=== PATIENT | male | born 1955 | race Caucasian/White ===

== ENCOUNTER 2020-03-03 12:16 | Outpatient (REF) | payer MEDICAID, SELFPAY ==
[2020-03-03 20:21] LABS: Hemoglobin A1C 7.3 % (3.8-5.6)
[2020-03-03 20:24] LABS: Anion Gap 13.8 mmol/L (3-11); BUN 17 mg/dL (7-18); CO2 21.2 mmol/L (21.0-32.0); CREATININE 0.86 mg/dL (0.70-1.30); Calcium 8.9 mg/dL (8.5-10.1); Calculated LDL 104 mg/dL (<100); Chloride 103 mmol/L (98-107); Cholesterol 161 mg/dL (<200); Glucose 146 mg/dL (74-106); HDL Cholesterol 41 mg/dL (40-60); Potassium 4.7 mmol/L (3.5-5.1); Sodium 138 mmol/L (136-145); Triglyceride 83 mg/dL (<150)
[2020-03-05 08:51] LABS: PSA, Screening 1.3 ng/mL (0.0-4.5)
== END 2020-03-03 12:36 ==
LOC: NCHCN 12:16
PROVIDERS: PCP Family Medicine; Visit Provider Nurse Practitioner Family
DX: I10 Essential (primary) hypertension (principal); E78.5 Hyperlipidemia, unspecified; R73.03 Prediabetes; Z12.5 Encounter for screening for malignant neoplasm of prostate
CPT/HCPCS: 80048; 80061; 84153; 83036

== ENCOUNTER 2020-06-16 15:46 | Outpatient (REF) | payer MEDICAID, SELFPAY ==
[2020-06-16 19:20] LABS: Abs Immature Grans 0.01 10^3/uL (0.0-0.06); Absolute Basophil Count 0.04 10^3/uL (0.0-0.2); Absolute Eosinophil Count 0.09 10^3/uL (0.0-0.7); Absolute Lymphocyte Count 2.08 10^3/uL (1.2-3.4); Absolute Monocyte Count 0.63 10^3/uL (0.1-0.8); Absolute Neutrophil Count 4.79 10^3/uL (1.2-6.7); Basophils % 0.5; Eosinophils % 1.2; HCT 47.2 % (40.0-50.0); HGB 15.3 g/dL (13.5-17.5); Immature Grans % 0.1; Lymphocytes % 27.2; MCH 29.8 pg (27.0-33.0); MCHC 32.4 % (32.0-36.0); MCV 91.8 fL (80-95); MPV 11.5 fL (8.0-11.0); Monocytes % 8.2; Neutrophils % 62.8; Nucleated RBC 0 %; Platelet Count 196 10^3/uL (130-400); RBC 5.14 10^6/uL (4.36-5.78); RDW-SD 47.7 fL; WBC 7.64 10^3/uL (4.4-10.8)
[2020-06-16 19:36] LABS: Anion Gap 11.5 mmol/L (3-11); BUN 16 mg/dL (7-18); CO2 25.5 mmol/L (21.0-32.0); CREATININE 0.96 mg/dL (0.70-1.30); Calcium 9.3 mg/dL (8.5-10.1); Chloride 102 mmol/L (98-107); Glucose 149 mg/dL (74-106); Potassium 3.8 mmol/L (3.5-5.1); Sodium 139 mmol/L (136-145)
[2020-06-16 19:58] LABS: Bacteria Negative HPF (Negative); C & S Indicated? No; Casts Negative LPF (Negative); Crystals Negative HPF (Negative); Epithelial Cells Rare HPF (Negative); Mucus Negative (Negative); RBC 0-2 HPF (0-2); WBC 0-2 HPF (0-5)
== END 2020-06-16 16:06 ==
LOC: NCHCN 15:46
PROVIDERS: PCP Nurse Practitioner Family; Visit Provider Nurse Practitioner Family
DX: R31.9 Hematuria, unspecified (principal)
CPT/HCPCS: 80048; 81015; 85025

== ENCOUNTER 2021-06-26 10:41 | Outpatient (REF) | payer MEDICAID, SELFPAY ==
[2021-06-26 14:07] LABS: Anion Gap 10.9 mmol/L (3-11); BUN 25 mg/dL (7-18); CO2 26.1 mmol/L (21.0-32.0); Chloride 104 mmol/L (98-107); Glucose 132 mg/dL (74-106); Potassium 4.2 mmol/L (3.5-5.1); Sodium 141 mmol/L (136-145)
[2021-06-26 14:54] LABS: Hemoglobin A1C 7.2 % (<5.7)
== END 2021-06-26 10:42 | disposition home or self-care (01) ==
LOC: NCHCN 10:41
PROVIDERS: PCP Nurse Practitioner Family; Visit Provider Nurse Practitioner Family
DX: E11.9 Type 2 diabetes mellitus without complications (principal); I10 Essential (primary) hypertension
CPT/HCPCS: 80048; 83036

== ENCOUNTER 2022-07-05 23:34 | Outpatient (REF) | payer MEDICARE, SELFPAY ==
[2022-07-05 18:21] LABS: Calculated LDL 79 mg/dL (<100); Cholesterol 168 mg/dL (<200); HDL Cholesterol 43 mg/dL (40-60); Triglyceride 233 mg/dL (<150)
[2022-07-05 18:34] LABS: Hemoglobin A1C 7.4 % (<5.7)
== END 2022-07-05 23:35 | disposition home or self-care (01) ==
LOC: NCHCN 23:34
PROVIDERS: PCP Nurse Practitioner Family; Visit Provider Nurse Practitioner Family
DX: E11.9 Type 2 diabetes mellitus without complications (principal); E78.5 Hyperlipidemia, unspecified
CPT/HCPCS: 80061; 83036

== ENCOUNTER 2022-08-20 09:02 | Outpatient (CLI) | payer MEDICARE, SELFPAY | END 2022-08-20 09:03 | disposition home or self-care (01) | LOC: CARDOPNVT 09:02 | PROVIDERS: PCP Nurse Practitioner Family; Visit Provider Nurse Practitioner Family | DX: R94.31 Abnormal electrocardiogram [ECG] [EKG] (principal) | CPT/HCPCS: 93246 ==

== ENCOUNTER 2022-09-16 07:41 | Outpatient (CLI) | payer MEDICARE, SELFPAY ==
--- NOTE | 2022-09-16 15:30 | W.CARDEVENT ---
Date of service: 09/16/22 Time of Service: 15:30 Cardiac Event Recorder Referring Provider:: Ade Murphy Indications:: Abnormal electrocardiogram Cardiac Event Note: This is a 14-day cardiac event monitor, reportedly ordered for an abnormal electrocardiogram Predominant rhythm was sinus with an average heart rate of 86. Minimum was 63, maximum 130 There were rare atrial premature beats. There were multiple brief self-limited atrial runs, the longest of which was 7 beats in duration There was no atrial fibrillation, no high-grade AV block, no pauses greater than 3 seconds There were frequent ventricular ectopic beats and couplets. There were periods o ventricular bigeminy and trigeminy. There were multiple episodes of nonsustained ventricular tachycardia. Generally these were 3-5 beats in duration. Several episodes were longer, lasting 12 beats, 24 beats and 36 beats in length. No patient symptoms were reported
== END 2022-09-16 07:42 | disposition home or self-care (01) ==
LOC: CARDOPNVT 07:41
PROVIDERS: PCP Nurse Practitioner Family; Visit Provider Internal Medicine Cardiovascular Disease
DX: R94.31 Abnormal electrocardiogram [ECG] [EKG] (principal); I47.20 Ventricular tachycardia, unspecified
CPT/HCPCS: 93248

== ENCOUNTER 2023-07-15 22:26 | Outpatient (REF) | payer MEDICARE, SELFPAY ==
[2023-07-15 18:55] LABS: Hemoglobin A1C 6.8 % (<5.7)
[2023-07-15 19:00] LABS: ALT 23 U/L (16-63); AST 20 U/L (15-37); Albumin 3.7 g/dL (3.4-5.0); Alkaline Phosphatase 70 U/L (46-116); Anion Gap 11.7 mmol/L (3-11); BUN 20 mg/dL (7-18); Bilirubin, Total 0.4 mg/dL (0.2-1.0); CO2 25.3 mmol/L (21.0-32.0); CREATININE 0.8 mg/dL (0.70-1.30); Calcium 9.5 mg/dL (8.5-10.1); Chloride 102 mmol/L (98-107); Estimated GFR 97.61 (mL/min/1.73m2); Glucose 144 mg/dL (74-106); Potassium 4.4 mmol/L (3.5-5.1); Sodium 139 mmol/L (136-145); Total Protein 7.9 g/dL (6.4-8.2)
[2023-07-15 19:11] LABS: Calculated LDL 77 mg/dL (<100); Cholesterol 143 mg/dL (<200); HDL Cholesterol 49 mg/dL (40-60); Triglyceride 88 mg/dL (<150)
[2023-07-15 19:17] LABS: Vitamin D 25 Total 34.8 ng/mL (30-100)
== END 2023-07-15 22:27 | disposition home or self-care (01) ==
LOC: NCHCN 22:26
PROVIDERS: PCP Nurse Practitioner Family; Visit Provider Nurse Practitioner Family
DX: I10 Essential (primary) hypertension (principal); E55.9 Vitamin D deficiency, unspecified; R73.09 Other abnormal glucose
CPT/HCPCS: 80053; 80061; 82306; 83036

== ENCOUNTER 2024-08-17 12:35 | Outpatient (REF) | payer MEDICARE, SELFPAY ==
[2024-08-17 17:03] LABS: ALT 22 U/L (16-63); AST 12 U/L (15-37); Alkaline Phosphatase 66 U/L (46-116); Anion Gap 14.3 mmol/L (3-11); BUN 25 mg/dL (7-18); Bilirubin, Total 0.39 mg/dL (0.2-1.0); CO2 22.7 mmol/L (21.0-32.0); Calcium 9.5 mg/dL (8.5-10.1); Calculated LDL 78 mg/dL (<100); Chloride 104 mmol/L (98-107); Cholesterol 157 mg/dL (<200); Estimated GFR 82.49 (mL/min/1.73m2); Glucose 133 mg/dL (74-106); HDL Cholesterol 47 mg/dL (40-60); Potassium 4.2 mmol/L (3.5-5.1); Sodium 141 mmol/L (136-145); Total Protein 8.1 g/dL (6.4-8.2); Triglyceride 160 mg/dL (<150)
[2024-08-17 17:09] LABS: COMMENT (LAB VIEW ONLY) 55.17 mg/dL; Microalb ug/mg Crea 22.1 ug/mg Cr
== END 2024-08-17 12:36 | disposition home or self-care (01) ==
LOC: NCHCN 12:35
PROVIDERS: PCP Nurse Practitioner Family; Visit Provider Nurse Practitioner Family
DX: E11.9 Type 2 diabetes mellitus without complications (principal)
CPT/HCPCS: 80053; 80061; 82043; 82570